=== PATIENT | male | born 2000 | race Caucasian/White ===

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

== ENCOUNTER 2022-08-11 14:29 | Emergency (ER) | payer BC ==
[2022-08-11 14:38] VITALS: TEMP 98
--- NOTE | 2022-08-11 14:57 | ED ---
Chest Pain HPI - General Chief Complaint: Chest Pain Stated Complaint: Chest Pain Time Seen by Provider: 08/11/22 14:46 Source: patient, RN notes reviewed Mode of arrival: ambulatory Limitations: no limitations - History of Present Illness Initial Comments: Patient is a 22 year old male presenting to the ER with a chief complaint of chest pain. Patient states the pain has been intermittent for the past week. The pain is localized over his left pectoral muscle with occasional radiation to his left shoulder blade. He rates the pain 4/10 at its worst. Patient would like to be evaluated to rule out anything serious. Patient denies a cardiac history. Patient denies shortness of breath, chest palpitations, abdominal pain, or change in bowel habits. - Related Data Previous Rx's Medication Instructions Recorded Cephalexin [Keflex] 500 mg PO BID 10 Days #20 cap 01/12/20 predniSONE 10 mg PO BID 5 Days #10 tab 01/12/20 Allergies Allergy/AdvReac Type Severity Reaction Status Date / Time amoxicillin Allergy Rash/Hives Verified 08/11/22 14:38 Review of Systems ROS Statement: Those systems with pertinent positive or pertinent negative responses have been documented in the HPI. ROS Other: All systems not noted in ROS Statement are negative. EKG Findings - EKG Comments: EKG Findings:: EKG performed at 14:55 sinus rhythm rate of 77 CA 161 QRS 98 QT/QTC 373/405 - EKG Results: EKG: interpreted by TORO Past Medical History Past Medical History: No Reported History History of Any Multi-Drug Resistant Organisms: None Reported Past Surgical History: No Surgical Hx Reported Past Psychological History: No Psychological Hx Reported Smoking Status: Never smoker Past Alcohol Use History: None Reported Past Drug Use History: None Reported General Exam Limitations: no limitations General appearance: alert, in no apparent distress Head exam: Present: atraumatic, normocephalic, normal inspection Eye exam: Present: normal appearance, PERRL, EOMI. Absent: scleral icterus, conjunctival injection, periorbital swelling ENT exam: Present: normal exam, mucous membranes moist Neck exam: Present: normal inspection. Absent: tenderness, meningismus, lymphadenopathy Respiratory exam: Present: normal lung sounds bilaterally. Absent: respiratory distress, wheezes, rales, rhonchi, stridor Cardiovascular Exam: Present: regular rate, normal rhythm, normal heart sounds. Absent: systolic murmur, diastolic murmur, rubs, gallop, clicks GI/Abdominal exam: Present: soft, normal bowel sounds. Absent: distended, tenderness, guarding, rebound, rigid Extremities exam: Present: normal inspection, full ROM, normal capillary refill. Absent: tenderness, pedal edema, joint swelling, calf tenderness Back exam: Present: normal inspection. Absent: CVA tenderness (R), CVA tenderness (L) Neurological exam: Present: alert, oriented X3, CN II-XII intact Psychiatric exam: Present: normal affect, normal mood Skin exam: Present: warm, dry, intact, normal color. Absent: rash Course Vital Signs 08/11/22 14:36 Temperature 98.0 F Pulse Rate 100 Respiratory 22 Rate Blood Pressure 138/86 O2 Sat by Pulse 98 Oximetry Chest Pain MDM - MDM Patient complain of some atypical intermittent left-sided chest pain EKG and chest x-ray unremarkable this is reproducible discomfort his chest wall pain. Patient discharged in stable condition return parameters were discussed. Disposition Clinical Impression: Chest wall pain Disposition: HOME SELF-CARE Condition: Stable Instructions (If sedation given, give patient instructions): Chest Pain (ED) Additional Instructions: Please return to the Emergency Department if symptoms worsen or any other concerns. Is patient prescribed a controlled substance at d/c from ED?: No Referrals: Mika Baig MD [Primary Care Provider] - 1-2 days Time of Disposition: 15:35
--- NOTE | 2022-08-11 15:23 | XR ---
EXAMINATION TYPE: XR chest 2V DATE OF EXAM: 08/11/2022 COMPARISON: NONE TECHNIQUE: PA and lateral views submitted. HISTORY: Pain FINDINGS: The lungs are clear and there is no pneumothorax, pleural effusion, or focal pneumonia. Hyperinflat ion of the lungs. Heart size normal. No overt failure. IMPRESSION: 1. No acute process. Correlate for COPD or asthma.
[2022-08-11 15:39] VITALS: BP 122/70; PULSE 70; RESP 16
== END 2022-08-11 16:00 | disposition home or self-care (01) ==
LOC: EC 14:29
DX: R07.89 Other chest pain (principal); Z88.0 Allergy status to penicillin
CPT/HCPCS: 71046; 93005; 99285